=== PATIENT | female | born 1935 | race Asian ===

== ENCOUNTER → 2017-06-12 | Outpatient (CLI) | payer MEDICARE, OTHER ==
[~2017-06-12] MED LIST: AMOX-559 PO; ASP325 PO; ASPI81TA94 PO; BISA-229 PO; BLOO1STR38 MC; CALC-649 PO; CALC-797 PO; CALC600T72 PO; CEFU250T11 PO; DOCU-442 PO; FLUT16SP19 NS; HYDR-4309 PO; LANC-1295 MC; METXR500 PO; MULT-1176 PO; MULT-912 PO; ONDA4TAB PO; OXYGENHOME INH; PROM-110 PO; ROSU20TA23 PO; SCOT TD; TOLT4CAP13 PO; VALS-25 PO; VALS1TAB79 PO; VALS1TAB8 PO; VALS320T12 PO
== END ==
LOC: LAB 16:53
PROVIDERS: ATTEND Family Medicine
DX: E78.5 Hyperlipidemia, unspecified (principal); E11.9 Type 2 diabetes mellitus without complications
CPT/HCPCS: 36415; 82465; 83036; 83718; 84478

== ENCOUNTER → 2017-09-27 | Outpatient (CLI) | payer MEDICARE, OTHER ==
[2017-09-27 10:59] LABS: PLATELET COUNT, AUTOMATED 279 K/uL (150-450)
== END ==
LOC: LAB 10:06
PROVIDERS: ATTEND Family Medicine
DX: R42 Dizziness and giddiness (principal); R10.9 Unspecified abdominal pain
CPT/HCPCS: 36415; 82040; 82247; 82310; 82374; 82435; 82565; 82947; 84075; 84132; 84155; 84295; 84450; 84460; 84520; 85025

== ENCOUNTER → 2017-10-20 | Outpatient (REF) | payer MEDICARE, OTHER ==
[~2017-10-20] MED LIST changes: +METF-411 PO
== END ==
LOC: ZZSENDIN 12:01
PROVIDERS: ATTEND Urology
DX: N39.0 Urinary tract infection, site not specified (principal); R82.79 Other abnormal findings on microbiological examination of urine
CPT/HCPCS: 81001; 87088

== ENCOUNTER → 2017-11-03 | Outpatient (CLI) | payer MEDICARE, OTHER | LOC: LAB 11:00 | PROVIDERS: ATTEND Urology | DX: N39.0 Urinary tract infection, site not specified (principal); R30.0 Dysuria; B96.20 Unspecified Escherichia coli [E. coli] as the cause of diseases classified elsewhere | CPT/HCPCS: 81001; 87077; 87088; 87186 ==

== ENCOUNTER → 2017-12-26 | Outpatient (CLI) | payer MEDICARE, OTHER ==
[~2017-12-26] MED LIST changes: +ACET-2146 PO; +LOSA-57 PO
== END ==
LOC: LAB 14:40
PROVIDERS: ATTEND Family Medicine
DX: E11.9 Type 2 diabetes mellitus without complications (principal); I10 Essential (primary) hypertension
CPT/HCPCS: 36415; 82310; 82374; 82435; 82565; 82947; 83036; 84132; 84295; 84520

== ENCOUNTER → 2018-01-09 | Outpatient (CLI) | payer MEDICARE, OTHER | LOC: LAB 15:08 | PROVIDERS: ATTEND Family Medicine | DX: E11.9 Type 2 diabetes mellitus without complications (principal); I10 Essential (primary) hypertension | CPT/HCPCS: 36415; 81001; 82043; 82310; 82374; 82435; 82565; 82947; 84132; 84295; 84520 ==

== ENCOUNTER → 2018-02-04 | Outpatient (REF) | payer MEDICARE, OTHER ==
[~2018-02-04] MED LIST changes: -METF-411 PO; +METF-450 PO
[2018-02-04 12:41] LABS: PLATELET COUNT, AUTOMATED 267 K/uL (150-450)
== END ==
PROVIDERS: ATTEND Family Medicine
DX: R10.9 Unspecified abdominal pain (principal); E11.9 Type 2 diabetes mellitus without complications
CPT/HCPCS: 82040; 82150; 82247; 82310; 82374; 82435; 82565; 82947; 83036; 83690; 84075; 84132; 84155; 84295; 84450; 84460; 84520; 85025; 85651

== ENCOUNTER → 2018-02-04 | Outpatient (CLI) | payer MEDICARE, OTHER ==
--- NOTE | 2018-02-04 13:36 | RADIOLOGY IMAGING REPORT ---
FACILITY: [facility] PATIENT NAME: Carolyn Xiao : 1935 MR: [id number] V: [id number] EXAM DATE: ORDERING PHYSICIAN: NORA CALVILLO TECHNOLOGIST: Location: Patient: Carolyn Xiao : 1935 Visit/Account:[id number] Date of Sevice: 02/04/2018 ABDOMEN COMPLETE ADDITIONAL PERTINENT HISTORY: Left-sided pain COMPARISON STUDIES: None FINDINGS: Gallbladder:Negative. Liver: Increased echogenicity throughout the liver parenchyma compatible with underlying fatty infil tration of the liver. No focal lesion within the liver.. Common duct: Negative measuring 5 mm.. Pancreas: Negative. Spleen:Negative. Kidneys: Small anechoic structure involving the right kidney measuring 1.8 x 1.8 x 1.9 cm consistent with an underlying cyst. Small renal calculi involving the right kidney. Both kidneys demonstrate inc reased echogenicity within the cortex. Right kidney measures 12.3 cm in length. The left kidney rush sures 12.3 cm in length Upper abdominal aorta and IVC: Negative. Ascites: none. IMPRESSION: 1. Fatty infiltration of the liver. 2. Right renal calculi. 3. Small right renal cyst. 4. No acute intra-abdominal process. Report Dictated By: Alexi Khoury MD at 02/04/2018 1:29 PM Report E-Signed By: Alexi Khoury MD at 02/04/2018 1:33 PM [id number]
== END ==
LOC: US 12:18
PROVIDERS: ATTEND Family Medicine
DX: N20.0 Calculus of kidney (principal); N28.1 Cyst of kidney, acquired; K76.0 Fatty (change of) liver, not elsewhere classified
CPT/HCPCS: 76700

== ENCOUNTER 2018-02-06 04:27 | Inpatient (IN) | payer MEDICARE, OTHER ==
[~2018-02-06] VITALS: Ht 154.9 cm; Wt 70.3 kg
--- NOTE | 2018-02-06 04:32 | ER Report ---
History and Physical Time Seen By MD: 04:31 HPI/ROS CHIEF COMPLAINT: Left-sided abdominal pain, nausea, headache HISTORY OF PRESENT ILLNESS: Patient is an 82-year-old female here with complaints of left-sided abdominal pain, epigastric burning pains, nausea, headaches, decreased appetite. Patient was evaluated several days ago and was sent in for evaluation with ultrasound and was told that she had a urine or kidney infection and was started on Macrobid. Patient reports worsening symptoms last evening, decreased oral intake, decreased appetite, abdominal discomfort, difficulty passing bowel movements and urine. Patient is afebrile, tachycardic, hypertensive at time of evaluation. Patient denies chest pain, shortness breath, muscle weakness, neurological deficits. REVIEW OF SYSTEMS: Constitutional: No fever, no chills. Eyes: No discharge. ENT: No sore throat. Cardiovascular: No chest pain, no palpitations. Respiratory: No cough, no shortness of breath. Gastrointestinal: + left sided/ mid epigastric abdominal pain, + nausea without vomiting. Genitourinary: No hematuria, + pain with urination Musculoskeletal: + left sided back pain. Skin: No rashes. Neurological: No headache. Allergies: Coded Allergies: No Known Drug Allergies (Verified , 11/24/15) Home Meds Active Scripts Losartan/Hydrochlorothiazide (LOSARTAN-HCTZ 100-12.5 MG TAB) 1 Each Tablet, 1 EACH PO QDAY for 90 Days, #90 TAB Prov:LLOYD MONROE MD 12/07/17 Rosuvastatin Calcium (CRESTOR) 20 Mg Tablet, 0.5 TAB PO QDAY, #90 TAB 3 Refills Prov:LLOYD MONROE MD 10/27/17 Metformin Hcl (METFORMIN HCL) 500 Mg Tablet, 1 TAB PO BID, #180 TAB 3 Refills Prov:LLOYD MONROE MD 09/29/17 Lancets (FREESTYLE LANCETS) 1 Each Each, BOX MC DIRECTED, #1 4 Refills Box of 100 lancets and 4 refills Use 1 lancet daily to check blood glucose Prov:LLOYD MONROE MD 07/03/17 Blood Sugar Diagnostic (CONTOUR NEXT) 1 Each Strip, 1 EACH MC DAILY for 90 Days, #1 BOTTLE 4 Refills 1 bottle of 100 plus refills Prov:LLOYD MONROE MD 07/03/17 Fluticasone Prop 50 Mcg Ns (FLONASE 50 MCG NS) 16 Gm [place].susp, 2 SPRAYS NS QDAY for 30 Days, #1 BOT Prov:LLOYD MONROE MD 06/12/17 Reported Medications Nitrofurantoin Monohyd/M-Cryst (MACROBID 100 MG CAPSULE) 100 Mg Capsule, 100 MG PO, CAPSULE 02/06/18 Acetaminophen 500 Mg Tab (ACETAMINOPHEN EXTRA STRENGTH) 500 Mg Tablet, 2 TAB PO BID, TAB 12/07/17 Aspirin (ASPIRIN) 81 Mg Tab.chew, 81 MG PO QDAY, TAB.CHEW 06/12/17 Calcium Carbonate/Vitamin D3 (CALCIUM 600 + VIT D CAPLET) 1 Each Tablet, 1 EACH PO DAILY Calcium 600 Vitamin D 800 04/17/17 Bisacodyl (DULCOLAX) 5 Mg Tablet.dr, 2 TAB PO HS 01/18/17 Multivits,Ca,Minerals/Iron/Fa (WOMEN'S DAILY CAPLET) 1 Each Tablet, 1 EACH PO DAILY 01/18/17 Oxygen (OXYGEN) Inha, 2 L INH HS, L 12/28/16 Hx Smoking: No Smoking Status: Never Smoker Constitutional Vital Sign - Last 24 Hours 02/06/18 02/06/18 02/06/18 02/06/18 04:36 04:41 04:57 05:00 Temp 99.0 Pulse 100 95 Resp 18 B/P (MAP) 188/72 188/72 (110) 150/53 (85) Pulse Ox 92 90 O2 Delivery Room Air 02/06/18 02/06/18 02/06/18 02/06/18 05:27 05:30 05:46 05:57 Pulse 83 84 B/P (MAP) 147/68 (94) 150/64 (92) Pulse Ox 97 96 02/06/18 06:00 B/P (MAP) 145/67 (93) Intake and Output 02/05/18 02/05/18 02/06/18 15:00 23:00 07:00 Intake Total 1000 ml Balance 1000 ml Physical Exam General Appearance: The patient is alert, has no immediate need for airway protection and no signs of toxicity. NAD Eyes: Pupils equal and round no pallor or injection. ENT, Mouth: Mucous membranes are moist. Respiratory: There are no retractions, lungs are clear to auscultation. Cardiovascular: Regular rate and rhythm. Gastrointestinal: Abdomen is soft and + tender in the left abdomen, no masses, bowel sounds normal. Neurological: No focal neuro deficits Skin: Warm and dry, no rashes. Musculoskeletal: Neck is supple non tender. Extremities are nontender, nonswollen and have full range of motion. DIFFERENTIAL DIAGNOSIS: After history and physical exam differential diagnosis was considered for abdominal pain including but not limited to appendicitis, cholecystitis, gastritis and urinary tract infection. Medical Decision Making Data Points Result Diagram: 02/06/18 0456 02/06/18 0456 Laboratory Hematology Test 02/06/18 04:49 02/06/18 04:56 Urine Color Yellow Urine Clarity Cloudy Urine pH 5.0 pH (4.8-9.5) Urine Specific Pep 1.026 Urine Protein 500 mg/dL (NEGATIVE) Urine Glucose (UA) Negative mg/dL (NEGATIVE) Urine Ketones 20 mg/dL (NEGATIVE) Urine Blood Negative (NEGATIVE) Urine Nitrite Negative (NEGATIVE) Urine Bilirubin Negative (NEGATIVE) Urine Urobilinogen 2.0 mg/dL (0.2-1.9) Urine Leukocyte Esterase Trace (NEGATIVE) Urine RBC <1 /HPF (0-2/HPF) Urine WBC 2 /HPF (0-5/HPF) Urine Squamous Epithelial Cells Moderate /LPF (</=FEW) Urine Bacteria Negative /HPF (NONE-FEW) Urine Hyaline Casts Few /LPF (NONE-FEW) Urine Mucus None /HPF (NONE-FEW) Red Blood Count 4.95 M/uL (4.17-5.56) Mean Corpuscular Volume 87.4 fL (80.0-96.0) Mean Corpuscular Hemoglobin 29.6 pg (26.0-33.0) Mean Corpuscular Hemoglobin Concent 33.9 g/dL (32.0-36.0) Red Cell Distribution Width 14.0 % (11.5-14.5) Mean Platelet Volume 7.0 fL (7.2-11.1) Neutrophils (%) (Auto) 86.2 % (39.4-72.5) Lymphocytes (%) (Auto) 5.1 % (17.6-49.6) Monocytes (%) (Auto) 6.7 % (4.1-12.4) Eosinophils (%) (Auto) 1.6 % (0.4-6.7) Basophils (%) (Auto) 0.4 % (0.3-1.4) Nucleated RBC Relative Count (auto) 0.0 /100WBC Neutrophils # (Auto) 10.9 K/uL (2.0-7.4) Lymphocytes # (Auto) 0.7 K/uL (1.3-3.6) Monocytes # (Auto) 0.9 K/uL (0.3-1.0) Eosinophils # (Auto) 0.2 K/uL (0.0-0.5) Basophils # (Auto) 0.1 K/uL (0.0-0.1) Nucleated RBC Absolute Count (auto) 0.00 K/uL Prothrombin Time 14.1 seconds (12.0-14.4) Prothromb Time International Ratio 1.09 Activated Partial Thromboplast Time 34 seconds (23-35) Sodium Level 124 mmol/L (137-145) Potassium Level 3.9 mmol/L (3.5-5.0) Chloride Level 87 mmol/L (98-107) Carbon Dioxide Level 23 mmol/L (22-31) Blood Urea Nitrogen 14 mg/dl (7-18) Creatinine 0.80 mg/dl (0.52-1.04) Glomerular Filtration Rate Calc > 60.0 Random Glucose 161 mg/dl (75-110) Calcium Level 9.2 mg/dl (8.4-10.2) Total Bilirubin 1.0 mg/dl (0.2-1.3) Aspartate Amino Transf (AST/SGOT) 20 U/L (0-35) Alanine Aminotransferase (ALT/SGPT) 26 U/L (0-56) Alkaline Phosphatase 58 U/L (0-126) Total Protein 7.5 g/dl (6.3-8.2) Albumin 4.2 g/dl (3.5-5.0) Lipase 34 U/L (23-300) Chemistry Test 02/06/18 04:49 02/06/18 04:56 Urine Color Yellow Urine Clarity Cloudy Urine pH 5.0 pH (4.8-9.5) Urine Specific Pep 1.026 Urine Protein 500 mg/dL (NEGATIVE) Urine Glucose (UA) Negative mg/dL (NEGATIVE) Urine Ketones 20 mg/dL (NEGATIVE) Urine Blood Negative (NEGATIVE) Urine Nitrite Negative (NEGATIVE) Urine Bilirubin Negative (NEGATIVE) Urine Urobilinogen 2.0 mg/dL (0.2-1.9) Urine Leukocyte Esterase Trace (NEGATIVE) Urine RBC <1 /HPF (0-2/HPF) Urine WBC 2 /HPF (0-5/HPF) Urine Squamous Epithelial Cells Moderate /LPF (</=FEW) Urine Bacteria Negative /HPF (NONE-FEW) Urine Hyaline Casts Few /LPF (NONE-FEW) Urine Mucus None /HPF (NONE-FEW) White Blood Count 12.7 k/uL (4.5-11.0) Red Blood Count 4.95 M/uL (4.17-5.56) Hemoglobin 14.7 g/dL (12.0-16.0) Hematocrit 43.3 % (34.0-47.0) Mean Corpuscular Volume 87.4 fL (80.0-96.0) Mean Corpuscular Hemoglobin 29.6 pg (26.0-33.0) Mean Corpuscular Hemoglobin Concent 33.9 g/dL (32.0-36.0) Red Cell Distribution Width 14.0 % (11.5-14.5) Platelet Count 243 K/uL (150-450) Mean Platelet Volume 7.0 fL (7.2-11.1) Neutrophils (%) (Auto) 86.2 % (39.4-72.5) Lymphocytes (%) (Auto) 5.1 % (17.6-49.6) Monocytes (%) (Auto) 6.7 % (4.1-12.4) Eosinophils (%) (Auto) 1.6 % (0.4-6.7) Basophils (%) (Auto) 0.4 % (0.3-1.4) Nucleated RBC Relative Count (auto) 0.0 /100WBC Neutrophils # (Auto) 10.9 K/uL (2.0-7.4) Lymphocytes # (Auto) 0.7 K/uL (1.3-3.6) Monocytes # (Auto) 0.9 K/uL (0.3-1.0) Eosinophils # (Auto) 0.2 K/uL (0.0-0.5) Basophils # (Auto) 0.1 K/uL (0.0-0.1) Nucleated RBC Absolute Count (auto) 0.00 K/uL Prothrombin Time 14.1 seconds (12.0-14.4) Prothromb Time International Ratio 1.09 Activated Partial Thromboplast Time 34 seconds (23-35) Glomerular Filtration Rate Calc > 60.0 Calcium Level 9.2 mg/dl (8.4-10.2) Total Bilirubin 1.0 mg/dl (0.2-1.3) Aspartate Amino Transf (AST/SGOT) 20 U/L (0-35) Alanine Aminotransferase (ALT/SGPT) 26 U/L (0-56) Alkaline Phosphatase 58 U/L (0-126) Total Protein 7.5 g/dl (6.3-8.2) Albumin 4.2 g/dl (3.5-5.0) Lipase 34 U/L (23-300) Coagulation Test 02/06/18 04:56 Prothrombin Time 14.1 seconds Prothromb Time International Ratio 1.09 Activated Partial Thromboplast Time 34 seconds Urinalysis Test 02/06/18 04:49 Urine Color Yellow Urine Clarity Cloudy Urine pH 5.0 pH (4.8-9.5) Urine Specific Pep 1.026 Urine Protein 500 mg/dL (NEGATIVE) Urine Glucose (UA) Negative mg/dL (NEGATIVE) Urine Ketones 20 mg/dL (NEGATIVE) Urine Blood Negative (NEGATIVE) Urine Nitrite Negative (NEGATIVE) Urine Bilirubin Negative (NEGATIVE) Urine Urobilinogen 2.0 mg/dL (0.2-1.9) Urine Leukocyte Esterase Trace (NEGATIVE) Urine RBC <1 /HPF (0-2/HPF) Urine WBC 2 /HPF (0-5/HPF) Urine Squamous Epithelial Cells Moderate /LPF (</=FEW) Urine Bacteria Negative /HPF (NONE-FEW) Urine Hyaline Casts Few /LPF (NONE-FEW) Urine Mucus None /HPF (NONE-FEW) EKG/Imaging Imaging CT imaging of the abdomen and pelvis: No acute inflammatory process within the abdomen or the pelvis, diffuse colonic diverticulosis without evidence of diverticulitis, exophytic right renal cyst which was seen on a recent ultrasound, atherosclerosis, fatty liver, indeterminate right middle lobe pulmonary nodule. See recommendations below. Please see official radiology report for complete details and finalized report. ED Course/Re-evaluation ED Course Patient is an 82-year-old female here with complaints of nausea, decreased appetite, left-sided abdominal tenderness and discomfort, headaches, dehydration. Patient has been taking Macrobid for diagnosis of urinary tract infection on Monday. Patient was found to have a markedly decreased sodium of 124 down from 142 on February 04. Labs showed a leukocytosis of 12.7, ketones in the urine, proteinuria. Patient was transfused 1 L of normal saline, Zofran. CT imaging showed no acute intra-abdominal process. Due to the patient's current lab findings and clinical exam findings, decision was made to discuss the patient with Dr. Flowers, on-call hospitalist. Dr. Flowers evaluated the patient at bedside and decision was made to admit to hospitalist service. Decision to Disposition Date: Feb 06, 2018 Decision to Disposition Time: 06:50 Depart Departure Latest Vital Signs Vital Signs Date Time Temp Pulse Resp B/P (MAP) Pulse Ox O2 Delivery O2 Flow Rate FiO2 02/06/18 06:00 145/67 (93) 02/06/18 05:57 84 96 02/06/18 04:36 99.0 18 Room Air Impression: Primary Impression: Dehydration Additional Impressions: Hyponatremia Decreased appetite Nausea Condition: Condition Unchanged Disposition: Admitted from ER Referrals: LLOYD MONROE MD (PCP) Problem Qualifiers REJI MCDONOUGH DO Feb 06, 2018 04:32
[2018-02-06] MEDS ORDERED: ONDANSETRON 4 MG/2 ML VIAL IVP ONE (04:45)
[2018-02-06] MEDS ORDERED: NS(*) 0.9% 1000 ML BAG 1,000 ML IV ONE (04:45)
[2018-02-06] MEDS ORDERED: IOPAMIDOL 76% 75 ML INFUS BTL 0 ML ONE (05:03)
[2018-02-06] MEDS ORDERED: NITR-105 PO (05:05)
[2018-02-06 05:34] LABS: INR 1.09
[2018-02-06 05:41] LABS: PLATELET COUNT, AUTOMATED 243 K/uL (150-450)
--- NOTE | 2018-02-06 06:26 | RADIOLOGY IMAGING REPORT ---
FACILITY: [facility] [place] PATIENT NAME: Carolyn Xiao : 1935 MR: [id number] V: [id number] EXAM DATE: ORDERING PHYSICIAN: REJI MCDONOUGH TECHNOLOGIST: [place] [facility] [place]yn X[place] : 1935 Visit/Account:[id number] Date of Sevice: 02/06/2018 CT abdomen and pelvis without contrast Indication: Left-sided abdominal pain. Further evaluate. Comparison: None Available. Technique: Axial CT images are obtained through the abdomen and pelvis. Reformatted coronal and sagit jesus images were reviewed. IV contrast was not administered. One of the following dose optimization techniques was utilized in the performance of this exam: Autom ated exposure control; adjustment of the mA and/or kV according to the patient's size; or use of an i terative reconstruction technique. Specific details can be referenced in the facility's radiology C T exam operational policy. Findings: Lower lung ramos: 5 mm nodule is seen within the right middle lobe on image 4. On image 1, a 3 mm no dule is seen within the right middle lobe. Dependent atelectasis involves both lower lobes. There is a fat-containing hiatal hernia. Evaluation of the solid organs of the abdomen is limited without IV contrast. Liver: There is diffuse fatty liver. Biliary: Gallbladder appears unremarkable as well as the intra and extra hepatic biliary system. Pancreas: Normal appearance. Spleen: Normal appearance. Adrenal glands: Unremarkable. Kidneys / retroperitoneum: There is no evidence of hydronephrosis/obstructive uropathy. No renal or u reteral calculi are seen. There is an exophytic water attenuation lesion involving the mid portion of the right kidney which measures 1.9 cm in greatest dimension and is consistent with an exophytic cys t. This was described on a recent ultrasound. Bowel / peritoneum / mesenteries: There is diffuse colonic diverticulosis. No evidence of acute diver ticulitis. A normal appendix is seen. Small bowel loops are normal in caliber. No free intraperitonea l air. No free pelvic fluid. Lymph node assessment: No pathologic adenopathy identified. Pelvic structures: There has been previous hysterectomy. Vessels: Moderately diffuse atherosclerotic calcifications seen throughout a nonaneurysmal abdominal aorta and branches. Musculoskeletal / Body wall: No acute compression deformity of the lumbar spine. Degenerative changes are seen at multiple levels. 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 IMPRESSION: 1. No acute inflammatory process within the abdomen or the pelvis. 2. Diffuse colonic diverticulosis without evidence of diverticulitis. 3. Exophytic right renal cyst which was seen on a recent ultrasound. 4. Atherosclerosis. 5. Fatty liver. 6. Indeterminant right middle lobe pulmonary nodules. See recommendations below. [employer] FOLLOW-UP GUIDELINES FOR NEWLY DETECTED INCIDENTAL NODULES IN PERSONS 35 YEARS OF AGE OR OLDER. *THESE RECOMMENDATIONS DO NOT APPLY TO LUNG CANCER SCREENING, PATIENTS WITH IMMUNOSUPPRESSION , OR PA TIENTS WITH KNOWN PRIMARY MALIGNANCY. MULTIPLE SOLID NODULES If largest nodule size is less than 6 mm: Low risk patient - no follow up needed High risk patient - Optional CT at 12 months. If largest nodule size is 6-8 mm: Low risk patient - follow up CT at 3-6 months, then consider CT at 18-24 months if no change. High risk patient - follow up CT at 3-6 months, then CT at 18-24 months if no change. If largest nodule size is greater than 8 mm: Low risk patient - follow up CT at 3-6 months, then consider CT at 18-24 months High risk patient - follow up CT at 3-6 months, then at 18-24 months LOW RISK PATIENT: Minimal or absent history of tobacco use and of other known risk factors. HIGH RISK PATIENT: Tobacco use, family history of lung cancer, upper pulmonary lobe location of nodul e, presence of emphysema, pulmonary fibrosis, older age. Meganhoshakeel H, Darcy DP, Dago JM, et a . Guidelines for Management of Incidental Pulmonary Nodules Dete cted on CT Images: From the [employer] Society 2017. Radiology. Report Dictated By: Eliud Serna at 02/06/2018 6:09 AMReport E-Signed By: Eliud Serna at 02/06/2018 6:22 AM WSN:[id number]
[2018-02-06 07:50] VITALS: BP 132/57
[2018-02-06] MEDS ORDERED: PROMETHAZINE 25 MG/ML 1 ML AMP IVP PRN (07:55)
[2018-02-06] MEDS ORDERED: NS(*) 0.9% 1000 ML BAG 1,000 ML IV PRN (07:55)
[2018-02-06] MEDS ORDERED: INSULIN HUM LISPRO 100 UN/ML 3 ML VIAL SUBQ PRN (07:55)
--- NOTE | 2018-02-06 08:38 | History & Physical ---
History of Present Illness History of Present Illness 82yo female with HTN and type 2 diabetes who came to the ER for decreased oral intake, nausea and headache. 4 days ago, she developed chills, LUQ pain and nausea. She hasn't vomited. No diarrhea and hasn't had a BM for 4 days. She went to the Urgent Care 2 days ago. They did labs and an abdominal US. She was diagnosed with a UTI and started on Macrobid. She has developed a mild frontal headache since then. The LUQ pain is improving, but still present. History Problems: (1) OAB (overactive bladder) (2) History of hysterectomy (3) History of bladder suspension procedure (4) T2DM (type 2 diabetes mellitus) Status: Chronic (5) Hypertension Status: Chronic (6) STEWART on CPAP (7) HTN (hypertension) Home Meds Active Scripts Losartan/Hydrochlorothiazide (LOSARTAN-HCTZ 100-12.5 MG TAB) 1 Each Tablet, 1 EACH PO QDAY for 90 Days, #90 TAB Prov:LLOYD MONROE MD 12/07/17 Rosuvastatin Calcium (CRESTOR) 20 Mg Tablet, 0.5 TAB PO QDAY, #90 TAB 3 Refills Prov:LLOYD MONROE MD 10/27/17 Metformin Hcl (METFORMIN HCL) 500 Mg Tablet, 1 TAB PO BID, #180 TAB 3 Refills Prov:LLOYD MONROE MD 09/29/17 Lancets (FREESTYLE LANCETS) 1 Each Each, BOX MC DIRECTED, #1 4 Refills Box of 100 lancets and 4 refills Use 1 lancet daily to check blood glucose Prov:LLOYD MONROE MD 07/03/17 Blood Sugar Diagnostic (CONTOUR NEXT) 1 Each Strip, 1 EACH MC DAILY for 90 Days, #1 BOTTLE 4 Refills 1 bottle of 100 plus refills Prov:LLOYD MONROE MD 07/03/17 Fluticasone Prop 50 Mcg Ns (FLONASE 50 MCG NS) 16 Gm [place].susp, 2 SPRAYS NS QDAY for 30 Days, #1 BOT Prov:LLOYD MONROE MD 06/12/17 Reported Medications Nitrofurantoin Monohyd/M-Cryst (MACROBID 100 MG CAPSULE) 100 Mg Capsule, 100 MG PO, CAPSULE 02/06/18 Acetaminophen 500 Mg Tab (ACETAMINOPHEN EXTRA STRENGTH) 500 Mg Tablet, 2 TAB PO BID, TAB 12/07/17 Aspirin (ASPIRIN) 81 Mg Tab.chew, 81 MG PO QDAY, TAB.CHEW 06/12/17 Calcium Carbonate/Vitamin D3 (CALCIUM 600 + VIT D CAPLET) 1 Each Tablet, 1 EACH PO DAILY Calcium 600 Vitamin D 800 04/17/17 Bisacodyl (DULCOLAX) 5 Mg Tablet.dr, 2 TAB PO HS 01/18/17 Multivits,Ca,Minerals/Iron/Fa (WOMEN'S DAILY CAPLET) 1 Each Tablet, 1 EACH PO DAILY 01/18/17 Oxygen (OXYGEN) Inha, 2 L INH HS, L 12/28/16 Allergies: Coded Allergies: No Known Drug Allergies (Verified , 11/24/15) Hx Smoking: No Smoking Status: Never Smoker Hx Alcohol Use: No Hx Substance Use Disorder: No Review of Systems All Systems Reviewed/Normal: Yes, Except as Noted Exam Vital Signs Vital Signs Date Time Temp Pulse Resp B/P (MAP) Pulse Ox O2 Delivery O2 Flow Rate FiO2 02/06/18 07:50 99.0 82 18 132/57 (82) 95 Nasal Cannula 2.0 General Appearance: Alert, Awake, No Acute Distress Neuro: No Gross deficits Eyes: PERRLA ENT: Moist Mucous Membranes Cardiovascular: Regular Rate and Rhythm Respiratory: Clear to Auscultation GI: Abd Soft and Non-Tender : No CVA Tenderness Extremities: No Edema Integumentary: No Jaundice, No Cyanosis Medical Decision Making Data Points Result Diagram: 02/06/18 0456 02/06/18 0456 Item Value Date Time Sodium Level 142 mmol/L 02/04/18 1231 Sodium Level 124 mmol/L *L 02/06/18 0456 Blood Urea Nitrogen 17 mg/dl 02/04/18 1231 Blood Urea Nitrogen 14 mg/dl 02/06/18 0456 Creatinine 0.90 mg/dl 02/04/18 1231 Creatinine 0.80 mg/dl 02/06/18 0456 Random Glucose 90 mg/dl 02/04/18 1231 Random Glucose 161 mg/dl H 02/06/18 0456 Hemoglobin A1c 6.4 % H 02/04/18 1231 Calcium Level 9.7 mg/dl 02/04/18 1231 Total Bilirubin 0.4 mg/dl 02/04/18 1231 Aspartate Amino Transf (AST/SGOT) 19 U/L 02/04/18 1231 Alanine Aminotransferase (ALT/SGPT) 33 U/L 02/04/18 1231 Alkaline Phosphatase 51 U/L 02/04/18 1231 Alkaline Phosphatase 58 U/L 02/06/18 0456 Alanine Aminotransferase (ALT/SGPT) 26 U/L 02/06/18 0456 Aspartate Amino Transf (AST/SGOT) 20 U/L 02/06/18 0456 Total Bilirubin 1.0 mg/dl 02/06/18 045 Calcium Level 9.2 mg/dl 02/06/18 045 Neutrophils (%) (Auto) 86.2 % H 02/06/18 0456 Monocytes (%) (Auto) 6.7 % 02/06/18 045 Lymphocytes (%) (Auto) 5.1 % L 02/06/18 0456 Eosinophils (%) (Auto) 1.6 % 02/06/18455 Basophils (%) (Auto) 0.4 % 02/06/18455 Urine RBC <1 /HPF 02/06/189 Urine WBC 2 /HPF 02/06/18 0449 Urine Squamous Epithelial Cells Moderate /LPF H 02/06/18 0449 Urine Bacteria Negative /HPF 02/06/18 0449 Urine Hyaline Casts Few /LPF 02/06/18 0449 Urine Mucus None /HPF 02/06/18 0449 EKG / Imaging Imaging 02/06/18 Abd/Pelvis CT - 1. No acute inflammatory process within the abdomen or the pelvis. 2. Diffuse colonic diverticulosis without evidence of diverticulitis. 3. Exophytic right renal cyst which was seen on a recent ultrasound. 4. Atherosclerosis. 5. Fatty liver. 6. Indeterminant right middle lobe pulmonary nodules. See recommendations below. 02/04/18 Abd US - 1. Fatty infiltration of the liver. 2. Right renal calculi. 3. Small right renal cyst. 4. No acute intra-abdominal process. Assessment and Plan Problems: (1) Hyponatremia Status: Acute Assessment & Plan: She developed a sodium of 124 over a 2 day period. Likely, HCTZ and decreased oral intake contributed. Because she is on the diuretic, will hold of on doing urine studies to work up for now. She has received a liter of fluid in the ER. Will continue with gentle hydration and recheck a BMP this morning. (2) Nausea Status: Acute Assessment & Plan: She presented with 3-4 days of nausea and LUQ pain. She was started on treatment for a UTI 2 days ago with Macrobid. UA is bland, so will not continue. CT and US of the abdomen do not show any acute abnormalities. WBC is elevated today compared to 2 days ago. Likely, she has a viral gastritis. However, because of the diabetes hx, will check a troponin and EKG. Phenergan for nausea. Gentle hydration. Hold chronic ASA for now. (3) T2DM (type 2 diabetes mellitus) Status: Chronic Assessment & Plan: Holding chronic metformin. Checking glucose AC and HS and covering with SSI level 2. (4) Hypertension Status: Chronic Assessment & Plan: Holding chronic Losartan/HCTZ Copies to: LLOYD MONROE MD ; Venous Thromboembolism Antithrombotics Is Pt On Any Antithrombotics?: No Exam Sepsis Risk: No Definite Risk GRETCHEN SIERRA MD Feb 06, 2018 08:38
[2018-02-06] MEDS ORDERED: BISACODYL 10 MG SUPP PR PRN (10:25)
--- NOTE | 2018-02-06 10:51 | EKG ---
FACILITY: [facility] - [place] PATIENT NAME: BART NOLASCO : [id number] MR: [id number] V: [id number] EXAM DATE: ORDERING PHYSICIAN: GRETCHEN SIERRA TECHNOLOGIST: GABRIEL Heredia Reason : NAUSEA\RIB PAIN Blood Pressure : / mmHG Vent. Rate : 079 BPM Atrial Rate : 079 BPM P-R Int : 178 ms QRS Dur : 130 ms QT Int : 460 ms P-R-T Axes : 017 046 030 degrees QTc Int : 527 ms Sinus rhythm Right bundle branch block Abnormal ECG When compared with ECG of 03-JUN-2015 11:01, Right bundle branch block is now present Confirmed by BRYANNA BAILEY ([id number]) on 02/06/2018 3:41:08 PM Referred By: LEO Confirmed By:BRYANNA BAILEY
[2018-02-06 11:10] VITALS: Ht 154.9 cm; Wt 70.3 kg
[2018-02-06 14:14] VITALS: BP 122/113
[2018-02-06 14:18] VITALS: BP 146/68
[2018-02-06] MEDS: ACETAMINOPHEN 325 MG TAB PO PRN (16:07)
[2018-02-06 18:48] VITALS: BP 112/53
[2018-02-06] MEDS ORDERED: ROSUVASTATIN CALCIUM 10 MG TAB PO SCH (21:00)
[2018-02-07 06:03] LABS: PLATELET COUNT, AUTOMATED 194 K/uL (150-450)
[2018-02-07 07:33] VITALS: BP 126/44
[2018-02-07] MEDS: ACETAMINOPHEN 325 MG TAB PO PRN (07:45)
[2018-02-07 09:21] VITALS: BP 128/51
--- NOTE | 2018-02-07 14:20 | Hospitalist Depart ---
Discharge Summary Reason for Hosp/Final Diag: (1) Hyponatremia Status: Acute Hospital Course & Plan: She developed a sodium of 124 over a 2 day period. Likely, HCTZ and decreased oral intake contributed. Resolved with hydration. (2) Nausea Status: Acute Hospital Course & Plan: She presented with 3-4 days of nausea and LUQ pain. She was started on treatment for a UTI 2 days ago with Macrobid. UA is bland, so will not continue. CT and US of the abdomen do not show any acute abnormalities. WBC is elevated today compared to 2 days ago. Likely, she has a viral gastritis, improved and tolerating PO. (3) T2DM (type 2 diabetes mellitus) Status: Chronic Hospital Course & Plan: Resume metformin. (4) Hypertension Status: Chronic Hospital Course & Plan: Resume Losartan/HCTZ Departure Weight (Pounds): 155 Result Diagram: 02/07/1852202/07/18522 Condition: Improved Discharge: Home Discharge Instructions Home Meds Active Scripts Losartan/Hydrochlorothiazide (LOSARTAN-HCTZ 100-12.5 MG TAB) 1 Each Tablet, 1 EACH PO QDAY for 90 Days, #90 TAB Prov:LLOYD MONROE MD 12/07/17 Rosuvastatin Calcium (CRESTOR) 20 Mg Tablet, 0.5 TAB PO QDAY, #90 TAB 3 Refills Prov:LLOYD MONROE MD 10/27/17 Metformin Hcl (METFORMIN HCL) 500 Mg Tablet, 1 TAB PO BID, #180 TAB 3 Refills Prov:LLOYD MONROE MD 09/29/17 Lancets (FREESTYLE LANCETS) 1 Each Each, BOX MC DIRECTED, #1 4 Refills Box of 100 lancets and 4 refills Use 1 lancet daily to check blood glucose Prov:LLOYD MONROE MD 07/03/17 Blood Sugar Diagnostic (CONTOUR NEXT) 1 Each Strip, 1 EACH MC DAILY for 90 Days, #1 BOTTLE 4 Refills 1 bottle of 100 plus refills Prov:LLOYD MONROE MD 07/03/17 Fluticasone Prop 50 Mcg Ns (FLONASE 50 MCG NS) 16 Gm [place].susp, 2 SPRAYS NS QDAY for 30 Days, #1 BOT Prov:LLOYD MONROE MD 06/12/17 Reported Medications Nitrofurantoin Monohyd/M-Cryst (MACROBID 100 MG CAPSULE) 100 Mg Capsule, 100 MG PO, CAPSULE 02/06/18 Acetaminophen 500 Mg Tab (ACETAMINOPHEN EXTRA STRENGTH) 500 Mg Tablet, 2 TAB PO BID, TAB 12/07/17 Aspirin (ASPIRIN) 81 Mg Tab.chew, 81 MG PO QDAY, TAB.CHEW 06/12/17 Calcium Carbonate/Vitamin D3 (CALCIUM 600 + VIT D CAPLET) 1 Each Tablet, 1 EACH PO DAILY Calcium 600 Vitamin D 800 04/17/17 Bisacodyl (DULCOLAX) 5 Mg Tablet.dr, 2 TAB PO HS 01/18/17 Multivits,Ca,Minerals/Iron/Fa (WOMEN'S DAILY CAPLET) 1 Each Tablet, 1 EACH PO DAILY 01/18/17 Oxygen (OXYGEN) Inha, 2 L INH HS, L 12/28/16 Diet: Regular Copies to: LLOYD MONROE MD ; Venous Thromboembolism Antithrombotics Is Pt On Any Antithrombotics?: No TAYLOR LAMBERT DO Feb 07, 2018 14:20
[2018-02-08] MEDS ORDERED: INFLUENZA VIRUS VAC 0.5ML SYR IM ONLY ONE (07:55)
== END 2018-02-07 16:30 | disposition home or self-care (01) | DRG 641 ==
LOC: ER 04:32 → MED 07:02
PROVIDERS: ADMIT Internal Medicine; ATTEND Internal Medicine
DX: E87.1 Hypo-osmolality and hyponatremia (principal); T50.2X5A Adverse effect of carbonic-anhydrase inhibitors, benzothiadiazides and other diuretics, initial encounter; E11.9 Type 2 diabetes mellitus without complications; I10 Essential (primary) hypertension; E86.0 Dehydration; A08.4 Viral intestinal infection, unspecified; N32.81 Overactive bladder; G47.33 Obstructive sleep apnea (adult) (pediatric); Z90.710 Acquired absence of both cervix and uterus; Z99.81 Dependence on supplemental oxygen; Z79.84 Long term (current) use of oral hypoglycemic drugs; Z23 Encounter for immunization
CPT/HCPCS: 36415; 36416; 74176; 76700; 81001; 82040; 82150; 82247; 82310; 82374; 82435; 82565; 82947; 82948; 83036; 83690; 84075; 84132; 84155; 84295; 84450; 84460; 84484; 84520; 85025; 85610; 85651; 85730; 90471; 90674; 93005; 96361; 96374; 99284; J2405; J7030; Q9967

== ENCOUNTER → 2018-02-21 | Outpatient (CLI) | payer MEDICARE, OTHER ==
[2018-02-06 11:10] VITALS: BMI 29.3
[~2018-02-21] MED LIST changes: -HYDR-4309 PO; +HYDR-653 PO; +LOSA100T69 PO; +NITR-105 PO
[2018-02-21 14:17] LABS: PLATELET COUNT, AUTOMATED 340 K/uL (150-450)
== END ==
LOC: LAB 13:25
PROVIDERS: ATTEND Family Medicine
DX: R82.998 Other abnormal findings in urine (principal); I10 Essential (primary) hypertension; R42 Dizziness and giddiness; R11.10 Vomiting, unspecified
CPT/HCPCS: 36415; 82040; 82247; 82310; 82374; 82435; 82565; 82947; 84075; 84132; 84155; 84295; 84450; 84460; 84520; 85025

== ENCOUNTER → 2018-03-14 | Outpatient (CLI) | payer MEDICARE, OTHER ==
[2018-02-06 11:10] VITALS: BMI 29.3
[~2018-03-14] MED LIST changes: +AMLO-111 PO; +CETI-176 PO
== END ==
LOC: LAB 10:41
PROVIDERS: ATTEND Family Medicine
DX: I10 Essential (primary) hypertension (principal)
CPT/HCPCS: 36415; 82310; 82374; 82435; 82565; 82947; 84132; 84295; 84520

== ENCOUNTER → 2018-05-16 | Outpatient (CLI) | payer MEDICARE, OTHER ==
[2018-02-06 11:10] VITALS: BMI 29.3
[~2018-05-16] MED LIST changes: -LOSA100T69 PO; +LOSA100T75 PO
== END ==
LOC: LAB 15:47
PROVIDERS: ATTEND Family Medicine
DX: R82.998 Other abnormal findings in urine (principal); I10 Essential (primary) hypertension; R80.9 Proteinuria, unspecified
CPT/HCPCS: 82043

== ENCOUNTER → 2018-11-01 | Outpatient (CLI) | payer MEDICARE, OTHER ==
[2018-02-06 11:10] VITALS: BMI 29.3
[~2018-11-01] MED LIST changes: -AMLO-111 PO; +AMLO-125 PO; +Cpap; +MIRA50TA PO; +ROSU10TA PO; +ROSU20TA24 PO
== END ==
LOC: LAB 08:50
PROVIDERS: ATTEND Family Medicine
DX: E11.9 Type 2 diabetes mellitus without complications (principal)
CPT/HCPCS: 36415; 82310; 82374; 82435; 82565; 82947; 83036; 84132; 84295; 84520